=== PATIENT | female | born 1995 | race American Indian/Alaskan Native ===

== ENCOUNTER 2021-11-01 18:41 | Emergency (ER) | payer MEDICAID ==
[2021-11-01] MEDS ORDERED: cefTRIAXone 500 MG in Lidocaine 1% 1 ML IM ONE (21:18)
[2021-11-01] MEDS ORDERED: Doxycycline 100 MG Cap PO ONE (21:19)
[2021-11-01] MEDS ORDERED: metroNIDAZOLE 250 MG Tab PO ONE (21:20)
--- NOTE | 2021-11-01 22:10 | EDM.PDOC ---
ED HPI GENERAL MEDICAL PROBLEM - General Chief Complaint: Abdominal Pain Stated Complaint: ABDOMINAL PAIN Time Seen by Provider: 11/01/21 19:27 - History of Present Illness INITIAL COMMENTS - FREE TEXT/NARRATIVE: CHIEF COMPLAINT(S): Abdominal pain HISTORY OF PRESENT ILLNESS: This is a 26-year-old woman without any significant past medical history who comes to the emergency department with a chief complaint of abdominal pain. The patient states that for the past 3 to 4 days she has been experiencing a cramping and pinching abdominal pain which she rates as intermittent rated 6-7 out of 10. She states that it feels like a. However she is not on her period. She states that her last menstrual period was approximately 2-1/2 weeks ago and she is concerned that she may also have a sexually transmitted infection as she has had unprotected intercourse recently. She denies any vaginal bleeding, vaginal discharge, dysuria or hematuria. She has not yet tried anything for pain. There are no relieving factors. The pain is not exacerbated by anything. She denies any fevers or chills. REVIEW OF SYSTEMS: Constitutional: Denies fever, chills. Eyes: Denies eye pain Ears, Nose, Mouth, & Throat: Denies earache Cardiovascular: Denies chest pain Respiratory: Denies shortness of breath Gastrointestinal: Denies Nausea, vomiting, diarrhea, hematochezia. Genitourinary: Positive for suprapubic abdominal pain. Denies hematuria, dysuria, vaginal bleeding, vaginal discharge Skin:Denies a rash MSK: Denies joint pain Neurological: Denies blurred vision Psychiatric: Denies depression PAST MEDICAL HISTORY: As per history of present illness and as reviewed below otherwise noncontributory. SURGICAL HISTORY: As per history of present illness and as reviewed below otherwise noncontributory. LMP: 2.5 weeks ago SOCIAL HISTORY: As per history of present illness and as reviewed below otherwise noncontributory. FAMILY HISTORY: As per history of present illness and as reviewed below otherwise noncontributory. EXAMINATION OF ORGAN SYSTEMS/BODY AREAS: Constitutional: Blood pressure is 118/93, heart 69, respiratory 17 with an oxygen saturation 98% on room air. Temperature 36.2 General: Well-appearing woman who is in no acute distress Psychiatric: Appropriate mood and affect. Eyes: No scleral icterus or conjunctival erythema ENMT: Moist mucous membranes. No pharyngeal erythema Cardiovascular: Regular, rate, and rhythm. No gallops, murmurs, or rubs. Bilateral upper extremity pulses symmetric and intact. No peripheral edema. No JVD. Respiratory: Lungs clear to auscultation bilaterally. No wheezes, rales, or rhonchi. Gastrointestinal: Soft, non-tender, non-distended. Normoactive bowel sounds Genitourinary: Mild suprapubic tenderness. No CVA tenderness. Pelvic examination performed with RN news writer in presence. On speculum examination there was no cervical erythema with minimal vaginal discharge. On bimanual examination there was no cervical motion tenderness or adnexal tenderness. Musculoskeletal: Normal range of motion. Skin: No lesions or abrasions. Neurological: Alert, GCS 15 MEDICAL DECISION MAKING AND COURSE IN THE ED WITH INTERPRETATION/REVIEW OF DIAGNOSTIC STUDIES: This is a 26-year-old woman with out any significant past medical history who comes to the emergency department with suprapubic tenderness and concern for STD. At this time we will treat the patient prophylactically for STD and obtain gonorrhea, chlamydia trichomonas, bacterial vaginosis and Eveline swabs. Will obtain a urinalysis. Patient was amenable to this plan. DDx: STD, cystitis Urinalysis was positive for small leukocyte esterase with few bacteria and 0-3 WBCs. Interpretation: Negative. BV is positive. After urinalysis I did discuss antibiotic treatment at home and sexual intercourse refrain. She was given strict return precautions. The patient was amenable to discharge and had no further questions DISPOSITION: The patient was discharged home in stable condition. The patient will follow up with primary care physician in 3 to 5 days CONDITION: Fair PROCEDURES: None FINAL IMPRESSION(S)/DIAGNOSES: 1. Acute suprapubic pain Piyush Crocker M.D. Lower Abdomen Pain Score (Numeric/FACES): 6 - Related Data Allergies Allergy/AdvReac Type Severity Reaction Status Date / Time No Known Allergies Allergy Verified 11/01/21 19:27 Home Meds: Home Meds Doxycycline [Vibramycin] 100 mg PO BID #14 tab 11/01/21 [Rx] metroNIDAZOLE [Nuvessa] 5 gm VG BEDTIME #5 gel.w.appl 11/02/21 [Rx] Past Medical History - Past Health History Medical/Surgical History: Denies Medical/Surgical History Psychiatric History: Reports: Anxiety Endocrine/Metabolic History: Reports: Hypothyroidism - Past Surgical History HEENT Surgical History: Reports: Oral Surgery GI Surgical History: Reports: Cholecystectomy Social & Family History - Family History Family Medical History: No Pertinent Family History - Tobacco Use Tobacco Use Status *Q: Never Tobacco User - Recreational Drug Use Recreational Drug Type: Reports: Marijuana/Hashish - Living Situation & Occupation Living situation: Reports: Single, Other (With friends) 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[place]) ED ROS GENERAL - Review of Systems Review Of Systems: See Below ED EXAM, GENERAL - Physical Exam Exam: See Below Course - Vital Signs Last Recorded V/S: Last Vital Signs Temp 36.2 C 11/01/21 19:28 Pulse 69 11/01/21 19:28 Resp 17 11/01/21 19:28 BP 118/93 H 11/01/21 19:28 Pulse Ox 98 11/01/21 19:28 - Orders/Labs/Meds Labs: Laboratory Tests 11/01/21 11/01/21 11/01/21 Range/Units 19:37 19:37 22:00 Urine Color YELLOW Urine Appearance HAZY Urine pH 7.0 (5.0-8.0) Ur Specific [place] 1.015 (1.001-1.035) Urine Protein NEGATIVE (NEGATIVE) mg/dL Urine Glucose (UA) NEGATIVE (NEGATIVE) mg/dL Urine Ketones NEGATIVE (NEGATIVE) mg/dL Urine Occult Blood TRACE-INTACT H (NEGATIVE) Urine Nitrite NEGATIVE (NEGATIVE) Urine Bilirubin NEGATIVE (NEGATIVE) Urine Urobilinogen 0.2 (<2.0) EU/dL Ur Leukocyte Esterase SMALL H (NEGATIVE) Urine RBC 0-2 (0-2/HPF) Urine WBC 0-3 (0-5/HPF) Ur Epithelial Cells OCCASIONAL (NONE-FEW) Urine Bacteria FEW (NEGATIVE) Urine HCG, Qual NEGATIVE (NEGATIVE) Eveline species DNA NEGATIVE (NEGATIVE) Gardnerella DNA Probe POSITIVE H (NEGATIVE) Trichomonas DNA Probe NEGATIVE (NEGATIVE) Meds: Medications Discontinued Medications Generic Name Dose Route Start Last Admin Trade Name Freq PRN Reason Stop Dose Admin Doxycycline Hyclate 100 mg 11/01/21 21:19 11/01/21 21:32 Doxycycline 100 Mg Cap PO 11/01/21 21:20 100 mg ONETIME ONE Administration Ceftriaxone Sodium 500 mg/ 1 mls @ 1 mls/sec 11/01/21 21:18 11/01/21 21:32 Lidocaine HCl IM 11/01/21 21:19 1 mls/sec ONETIME ONE Administration Metronidazole 2,000 mg 11/01/21 21:20 11/01/21 21:32 Metronidazole 250 Mg Tab PO 11/01/21 21:21 2,000 mg NOW ONE Administration Departure - Departure Time of Disposition: 22:09 Disposition: Home, Self-Care 01 Condition: Fair Clinical Impression: STD (female) - Discharge Information *PRESCRIPTION DRUG MONITORING PROGRAM REVIEWED*: No *COPY OF PRESCRIPTION DRUG MONITORING REPORT IN PATIENT ARI: No Prescriptions: metroNIDAZOLE [Nuvessa] 5 gm VG BEDTIME #5 gel.w.appl Doxycycline [Vibramycin] 100 mg PO BID #14 tab Instructions: Chlamydia, Female, Gonorrhea Referrals: PCP,None [Primary Care Provider] - Forms: ED Department Discharge Additional Instructions: You were evaluated today on an emergent basis. At this time we did treat you for a sexually transmitted infection. As discussed please refrain from sexual intercourse for 14 days and if you develop any fever, worsening pain or vomiting I would like you to return to the emergency department. Please take the antibiotic as prescribed. Use Tylenol and Motrin for pain relief. Follow-up with primary care physician in 3 to 5 days [facility] [address] [place] [address] [address] The patient is informed of any results of their evaluation and diagnostic workup and all questions are answered. They are given discharge instructions and return precautions. The patient is stable for discharge. The patient states they understand and agree with the plan and that they will return if their symptoms get worse or if they have any new concerns. The following information is given to patients seen in the emergency department who are being discharged to home. This information is to outline your options for follow-up care. We provide all patients seen in our emergency department with a follow-up referral. The need for follow-up, as well as the timing and circumstances, are variable depending upon the specifics of your emergency department visit. If you don't have a primary care physician on staff, we will provide you with a referral. We always advise you to contact your personal physician following an emergency department visit to inform them of the circumstance of the visit and for follow-up with them and/or the need for any referrals to a consulting specialist. The emergency department will also refer you to a specialist when appropriate. This referral assures that you have the opportunity for follow-up care with a specialist. All of these measure are taken in an effort to provide you with optimal care, which includes your follow-up. Under all circumstances we always encourage you to contact your private physician who remains a resource for coordinating your care. When calling for follow-up care, please make the office aware that this follow-up is from your recent emergency room visit. If for any reason you are refused follow-up, please contact the [facility] Emergency Department at and asked to speak to the emergency department charge nurse. Sepsis Event Note (ED) - Evaluation Sepsis Screening Result: No Definite Risk
[2021-11-04 15:08] LABS: C.TRACHOMATIS BY TMA Positive (Negative); N.GONORRHOEAE BY TMA Negative (Negative)
== END 2021-11-01 22:16 | disposition home or self-care (01) ==
LOC: MW.ED 18:41
DX: R10.33 Periumbilical pain (principal); A64 Unspecified sexually transmitted disease
CPT/HCPCS: 81001; 81025; 87086; 87480; 87491; 87510; 87591; 87660; 96372; 99284; A9270; J0696